=== PATIENT | female | born 1980 | race Caucasian/White ===

== ENCOUNTER 2020-10-02 06:12 | Day surgery (SDC) | payer OTHER ==
[2020-09-30 16:59] LABS: ALANINE AMINOTRANSFERASE 25 U/L (12-78); ALBUMIN 3.6 g/dL (3.4-5.0); ANION GAP 6 mmol/L (5-15); CALCIUM 9.1 mg/dL (8.5-10.1); CHLORIDE 105 mmol/L (98-107); CREATININE 0.73 mg/dL (0.55-1.02)
[2020-09-30 17:02] LABS: ALKALINE PHOSPHATASE 95 U/L (45-117); BILIRUBIN,TOTAL 0.2 mg/dL (0.2-1.0); TOTAL PROTEIN 7.2 g/dL (6.4-8.2)
[~2020-10-02] VITALS: Ht 170.2 cm; Wt 104.0 kg
[~2020-10-02 06:12] MED LIST: ALBU8.5H8 INH; CETI-158 PO; FLUT15.815 NAS; GABAPENTIN PO; MULT-154 PO; OMEP20TA62 PO; POTASSIUM PO; TRIA1CAP3 PO; [UNRECOGNIZED DRUG - OTHER] PO; [UNRECOGNIZED DRUG - OTHER] PO
[2020-10-02] MEDS ORDERED: LIDOCAINE/PF 1%-EPI 1:200K, 30 ML ONE (06:49)
[2020-10-02] MEDS ORDERED: OXYMETAZOLINE NASAL SPRAY 0.05%,30ML ONE (06:50)
[2020-10-02] MEDS ORDERED: NEO/POLY/HC EAR SUSP 10ML ONE (06:50)
[2020-10-02 06:59] VITALS: BP 126/83
[2020-10-02] MEDS ORDERED: LIDOCAINE-MPF 1%, 2ML INFIL ONE (07:00)
[2020-10-02] MEDS ORDERED: LACTATED RINGERS 1,000 ML IV SCH (07:00)
[2020-10-02] MEDS ORDERED: CHLORHEXIDINE 15 ML UDC PO ONE (07:00)
[2020-10-02] MEDS ORDERED: CHLORHEXIDINE 15 ML UDC ONE (07:00)
[2020-10-02] MEDS ORDERED: MUPIROCIN OINT 2%, 22GM ONE (07:02)
[2020-10-02] MEDS ORDERED: NEOSPORIN OINT. PKT 1 PACKET ONE (07:02)
[2020-10-02 07:16] LABS: HCG UR SG 1.019 (1.003-1.030)
[2020-10-02] MEDS ORDERED: SCOPOLAMINE 1MG PATCH TD ONE (07:51)
[2020-10-02] MEDS ORDERED: MIDAZOLAM 1 MG/ML, 2ML ONE (07:53)
[2020-10-02] MEDS ORDERED: FENTANYL PF 250 MCG/5ML ONE (07:53)
[2020-10-02] MEDS ORDERED: CLINDAMYCIN 150 MG/ML, 6ML ONE (07:58)
[2020-10-02] MEDS ORDERED: hydrALAzine 20 MG/ML, 1ML IV PRN (08:00)
[2020-10-02] MEDS ORDERED: LABETALOL 5MG/ML, 20ML IV PRN (08:00)
[2020-10-02] MEDS ORDERED: ACETAMINOPHEN 325 MG TABLET PO PRN (08:00)
[2020-10-02] MEDS ORDERED: HALOPERIDOL 5 MG/ML IV PRN (08:00)
[2020-10-02] MEDS ORDERED: MEPERIDINE/PF 25MG/0.5ML IVPush PRN (08:00)
[2020-10-02] MEDS ORDERED: HYDROmorphone 1 MG/ML, 1ML INJ IVPush PRN (08:00)
[2020-10-02] MEDS ORDERED: DIPHENHYDRAMINE 50 MG/ML, 1ML IVPush PRN (08:00)
[2020-10-02] MEDS ORDERED: PROMETHAZINE 25 MG/ML, 1ML IVPush PRN (08:00)
[2020-10-02] MEDS ORDERED: CEFAZOLIN 1,000 MG ONE (08:53)
[2020-10-02] MEDS ORDERED: ONDANSETRON 2MG/ML, 2ML ONE (08:53)
[2020-10-02] MEDS ORDERED: ROCURONIUM 10MG/ML,5ML ONE (08:53)
[2020-10-02] MEDS ORDERED: PROPOFOL 10 MG/ML, 20ML ONE (08:53)
[2020-10-02] MEDS ORDERED: NEOSTIGMINE 1 MG/ML, 10ML ONE (08:53)
[2020-10-02] MEDS ORDERED: GLYCOPYRROLATE 0.2MG/1ML, 5ML ONE (08:53)
[2020-10-02] MEDS ORDERED: DEXAMETHASONE 4 MG/ML, 1ML ONE (08:53)
[2020-10-02] MEDS ORDERED: SUCCINYLCHOLINE 20 MG/ML, 10ML ONE (08:53)
[2020-10-02] MEDS ORDERED: PROMETHAZINE 25 MG/ML, 1ML ONE (09:21)
[2020-10-02] MEDS ORDERED: FENTANYL PF 100 MCG/2ML ONE (09:22)
[2020-10-02] MEDS: FENTANYL PF 100 MCG/2ML IV PRN ×4 (09:23→10:09)
[2020-10-02] MEDS ORDERED: ACETAMINOPHEN 650 MG/20.3 ML UDC ONE (10:11)
[2020-10-02] MEDS ORDERED: HYDROmorphone 1 MG/ML, 1ML INJ ONE (10:12)
[2020-10-02] MEDS ORDERED: OXYcodone 5 MG/5 ML ORAL.SOL UDC ONE (10:12)
[2020-10-02] MEDS: OXYcodone 5 MG/5 ML ORAL.SOL UDC PO PRN ×2 (10:15→11:30)
== END 2020-10-02 12:19 | disposition home or self-care (01) ==
LOC: OUT 06:12 → MERGE 08:15 → OUT 12:19
PROVIDERS: ATTEND Otolaryngology
DX: J32.4 Chronic pansinusitis (principal); J34.3 Hypertrophy of nasal turbinates; J45.909 Unspecified asthma, uncomplicated; Z20.822 Contact with and (suspected) exposure to COVID-19; Z79.899 Other long term (current) drug therapy; Z88.0 Allergy status to penicillin; Z88.5 Allergy status to narcotic agent; Z91.040 Latex allergy status
CPT/HCPCS: 30140; 31253; 31256; 36415; 80053; 81025; 87070; 87075; 87147; 87205; 93005; J0330; J1100; J1170; J2250; J2405; J2550; J2704; J3010; J7120; J7402; U0003; J0690; J2710